=== PATIENT | female | born 2000 | race Caucasian/White ===

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

== ENCOUNTER 2019-06-25 06:05 | Day surgery (SDC) | payer BC ==
[2019-06-25] MEDS ORDERED: Lactated Ringers 1,000 ML IV SCH (06:30)
[2019-06-25] MEDS ORDERED: Ketamine HCl 50 MG/ML ONE (07:52)
[2019-06-25] MEDS ORDERED: Xylocaine-Mpf 2% 5 Ml Vial ONE (07:52)
[2019-06-25] MEDS ORDERED: DIPRIVAN 200 MG/20 ML IV ONE (07:52)
[2019-06-25 10:02] VITALS: BP 118/68; PULSE 87; O2SAT 99
--- NOTE | 2019-06-25 11:36 | OP ---
SURGERY DATE/TIME: 06/25/2019805 PREOPERATIVE DIAGNOSES: 1) Abdominal pain. 2) Alternating constipation with diarrhea. 3) Rectal bleeding. POSTOPERATIVE DIAGNOSIS: Mild gastritis. PROCEDURE: Esophagogastroduodenoscopy with cold forceps biopsy. SURGEON: Dr. Snow. ANESTHESIA: Medications were given by the anesthesia department. BRIEF HISTORY: The patient is a 18 year old white female who has been having problems with abdominal pain over the past five months. She has been on Bentyl and omeprazole without much relief. The patient reports she has been having problems with alternating constipation and diarrhea and now more recently has been having problems with rectal bleeding as well. The patient was felt the need to have endoscopic evaluation. She was appraised of the risks of the procedure including the risk of perforation, phlebitis, untoward reaction to medication, bleeding and missed lesions. The patient verbalized her understanding and desired to have the procedure performed. DESCRIPTION OF PROCEDURE: The patient was given the medications by the anesthesia department. She had continuous pulse oximetry, ECG monitoring, intermittent blood pressure monitoring and tidal CO2 monitoring during the examination. She was placed in the left lateral decubitus position. A bite block was placed and the flexible Olympus gastroscope was used to intubate the oropharynx. A view of the larynx was obtained and was normal. The scope was easily introduced in the esophagus which was normal throughout its length. The stomach was entered where normal gastric rugal folds were seen. The gastric lam was suctioned dry and the stomach was re-insufflated. The scope was passed along the greater curvature of the stomach to the antrum. The pylorus was encountered and intubated. The duodenum was inspected and found to be normal. The scope was withdrawn towards the stomach. Again, a retroflex view was obtained of the lesser curvature, fundus and cardia regions of the stomach and these appeared to be normal. The scope was then redirected towards the gastric antrum and biopsies were obtained to rule out the presence of Helicobacter pylori-type organisms. The scope was then removed from the patient who tolerated the procedure well and was sent back to outpatient recovery in good condition.
== END 2019-06-25 09:45 | disposition home or self-care (01) ==
LOC: SDC 06:05
PROVIDERS: ATTEND Family Medicine
DX: K29.70 Gastritis, unspecified, without bleeding (principal); R10.9 Unspecified abdominal pain; R19.7 Diarrhea, unspecified; K62.5 Hemorrhage of anus and rectum; K59.00 Constipation, unspecified
CPT/HCPCS: 84703; 88305; J2704

== ENCOUNTER 2020-06-21 13:26 | Emergency (ER) | payer BC ==
[2020-06-21] MEDS ORDERED: XYLOCAINE 1% HCL 20 ML MDV IJ ONE (13:27)
[2020-06-21] MEDS ORDERED: Sodium Chloride 0.9% 1000 ML 1,000 ML IV STA (14:47)
--- NOTE | 2020-06-21 14:47 | ERPHSYRPT ---
- History of Present Illness Time Seen by Provider: 06/21/20 14:44 Patient Subjective Stated Complaint: Pt states "I cannot keep anything down, my belly hurts and I have been having bright blood in my stool. My poop has been kind of sticky and tarry as well." Triage Nursing Assessment: Pt presented alert and oriented X 3, skin pwd. Pt ambulates with an upright steady gait, able to speak in clear full sentences. pt sent here from [facility]. Physician History: Pt states "I cannot keep anything down, my belly hurts and I have been having bright blood in my stool. My poop has been kind of sticky and tarry as well." Patient is having abdominal pain off and on for last few months but in last 3 to 4 days it has gotten worse. She called her primary care physician office and she was advised to go to the acute care and from acute care she was sent to the emergency room. She denies any fever chills nausea. She complaining of vomiting but in the emergency room she did not have any vomiting. Timing/Duration: week(s) Activities at Onset: none Quality: cramping Abdominal Pain Onset Location: RUQ, suprapubic Pain Radiation: no radiation Severity of Pain-Max: mild Severity of Pain-Current: mild Modifying Factors: Improves With: nothing Associated Symptoms: denies symptoms Previous symptoms: no prior history Allergies/Adverse Reactions: ciprofloxacin [From Cipro] Allergy (Severe, Verified 06/25/19 06:25) diff breathing sulfamethoxazole [From Bactrim] Allergy (Severe, Verified 06/25/19 06:25) diff breathing trimethoprim [From Bactrim] Allergy (Severe, Verified 06/25/19 06:25) diff breathing latex Allergy (Verified 06/25/19 06:25) Wheezing and hives wheat Adverse Reaction (Verified 06/21/20 13:54) sick Home Medications: Albuterol 17 gm IH Q6HPRN PRN 11/01/16 [History] Albuterol 2.5 mg/3 ml Neb [Proventil 2.5 mg/3 ml Neb] 2.5 mg IH Q6H PRN PRN 11/01/16 [History] Fluticasone/Vilanterol [Breo Ellipta 100-25 Mcg INH] 1 each IH DAILY 06/22/19 [History] Loratadine 10 mg [Claritin 10 mg] 10 mg PO DAILY 06/22/19 [History] Hx Tetanus, Diphtheria Vaccination/Date Given: No Hx Influenza Vaccination/Date Given: No Hx Pneumococcal Vaccination/Date Given: No Immunizations Up to Date: Yes Travel Risk - International Travel Have you traveled outside of the country in past 3 weeks: No - Coronavirus Screening Are you exhibiting any of the following symptoms?: No Close contact with a COVID-19 positive Pt in past 14-21 Days: No - Vaccine Status Have you recieved a Covid-19 vaccination: Yes [employer]: Trufa - Vaccination Dates Date of 2cond Vaccination (if applicable): 04/23/2020 - Review of Systems Constitutional: No Fever, No Chills Eyes: No Symptoms Ears, Nose, & Throat: No Symptoms Respiratory: No Cough, No Dyspnea Cardiac: No Chest Pain, No Edema, No Syncope Abdominal/Gastrointestinal: Hematochezia, No Abdominal Pain, No Nausea, No Vomiting, No Diarrhea Genitourinary Symptoms: No Dysuria Musculoskeletal: No Back Pain, No Neck Pain Skin: No Rash Neurological: No Dizziness, No Focal Weakness, No Sensory Changes Psychological: No Symptoms Endocrine: No Symptoms All Other Systems: Reviewed and Negative - Past Medical History Pertinent Past Medical History: Yes Neurological History: No Pertinent History ENT History: No Pertinent History Cardiac History: No Pertinent History Respiratory History: Asthma Endocrine Medical History: No Pertinent History Musculoskeletal History: No Pertinent History GI Medical History: No Pertinent History History: No Pertinent History Psycho-Social History: No Pertinent History Female Reproductive Disorders: No Pertinent History Other Medical History: abd pain n/v diarrhea constipations since Feb 2019 - Past Surgical History Past Surgical History: No Neuro Surgical History: No Pertinent History Cardiac: No Pertinent History Respiratory: No Pertinent History Gastrointestinal: No Pertinent History Genitourinary: No Pertinent History Musculoskeletal: No Pertinent History Female Surgical History: No Pertinent History Other Surgical History: pt states pt has never had surgery - Social History Smoking Status: Never smoker Exposure to second hand smoke: Yes Drug Use: none Patient Lives Alone: No - Female History Hx Now: (unknown) - Nursing Vital Signs Nursing Vital Signs: Initial Vital Signs Temperature 98.7 F 06/21/20 13:47 Pulse Rate 102 H 06/21/20 13:47 Respiratory Rate 06/21/20 13:47 Blood Pressure 119/87 06/21/20 13:47 O2 Sat by Pulse Oximetry 99 06/21/20 13:47 Pain Scale Pain Intensity 4 - Physical Exam General Appearance: no apparent distress, alert Eye Exam: PERRL/EOMI, eyes nml inspection Ears, Nose, Throat Exam: normal ENT inspection, pharynx normal, moist mucous membranes Neck Exam: normal inspection, non-tender, supple, full range of motion Respiratory Exam: normal breath sounds, lungs clear, No respiratory distress Cardiovascular Exam: regular rate/rhythm, normal heart sounds Gastrointestinal/Abdomen Exam: soft, No tenderness, No mass Back Exam: normal inspection, normal range of motion, No CVA tenderness, No vertebral tenderness Extremity Exam: normal inspection, normal range of motion, pelvis stable Neurologic Exam: alert, oriented x 3, cooperative, normal mood/affect, nml cerebellar function, sensation nml, No motor deficits Skin Exam: normal color, warm, dry SpO2: 99 - Course Nursing assessment & vital signs reviewed: Yes Ordered Tests: Active Orders 24 hr Category Date Time Status OBSTR/ACUTE ABDOMEN SERIES Stat Exams 06/21/20 14:38 Ordered AMYLASE Stat Lab 06/21/20 14:37 Completed CBC W DIFF Stat Lab 06/21/20 14:37 Completed CMP Stat Lab 06/21/20 14:37 Completed CULTURE,URINE Stat Lab 06/21/20 14:49 Ordered FECAL OCCULT BLOOD - SCREENING Stat Lab 06/21/20 14:48 Ordered HCG,QUALITATIVE URINE Stat Lab 06/21/20 14:49 Completed LIPASE Stat Lab 06/21/20 14:37 Completed UA W/RFX UR CULTURE Stat Lab 06/21/20 14:49 Completed Urine Triage Profile Stat Lab 06/21/20 14:49 Completed Medication Summary Generic Name Dose Route Start Last Admin Trade Name Freq PRN Reason Stop Dose Admin Ceftriaxone Sodium 1,000 mg 06/21/20 15:47 Rocephin 1000 Mg Inj IM 06/21/20 15:48 STAT ONE Discontinued Medications Generic Name Dose Route Start Last Admin Trade Name Freq PRN Reason Stop Dose Admin Sodium Chloride 1,000 mls @ 999 mls/hr 06/21/20 14:47 Sodium Chloride 0.9% 1000 Ml IV 06/21/20 15:47 .Q1H1M STA Lab/Rad Data: Laboratory Result Diagrams 06/21/20 14:37 06/21/20 14:37 Laboratory Results 06/21/20 06/21/20 06/21/20 Range/Units 14:49 14:49 14:49 WBC (4.0-10.5) K/mm3 RBC (4.1-5.4) M/mm3 Hgb (12.0-16.0) gm/dl Hct (35-47) % MCV (78-100) fl MCH (26-32) pg MCHC (32-36) g/dl RDW (11.5-14.0) % Plt Count (150-450) K/mm3 MPV (7.5-11.0) fl Gran % (36.0-66.0) % Eos # (Auto) (0-0.5) Absolute Lymphs (auto) (1.0-4.6) Absolute Monos (auto) (0.0-1.3) Lymphocytes % (24.0-44.0) % Monocytes % (0.0-12.0) % Eosinophils % (0.00-5.0) % Basophils % (0.0-0.4) % Absolute Granulocytes (1.4-6.9) Basophils # (0-0.4) Sodium (137-145) mmol/L Potassium (3.5-5.1) mmol/L Chloride (98-107) mmol/L Carbon Dioxide (22-30) mmol/L Anion Gap (5-15) MEQ/L BUN (7-17) mg/dL Creatinine (0.52-1.04) mg/dL Estimated GFR ML/MIN Glucose (74-106) mg/dL Calcium (8.4-10.2) mg/dL Total Bilirubin (0.2-1.3) mg/dL AST (14-36) U/L ALT (0-35) U/L Alkaline Phosphatase (38-126) U/L Serum Total Protein (6.3-8.2) g/dL Albumin (3.5-5.0) g/dL Amylase (30-110) U/L Lipase (23-300) U/L Urine Color YELLOW (YELLOW) Urine Appearance SLIGHTLY CLOUDY (CLEAR) Urine pH 8.0 (5-6) Ur Specific [place] 1.008 (1.005-1.025) Urine Protein NEGATIVE (Negative) Urine Ketones TRACE (NEGATIVE) Urine Blood NEGATIVE (0-5) Bayron/ul Urine Nitrite NEGATIVE (NEGATIVE) Urine Bilirubin NEGATIVE (NEGATIVE) Urine Urobilinogen NEGATIVE (0-1) mg/dL Ur Leukocyte Esterase LARGE (NEGATIVE) Urine WBC (Auto) 26-50 (0-5) /HPF Urine RBC (Auto) 0-2 (0-2) /HPF U Epithel Cells (Auto) FEW (FEW) /HPF Urine Bacteria (Auto) MODERATE (NEGATIVE) /HPF Urine Culture Reflexed ORDERED SEPARATELY (NO) Urine Glucose NEGATIVE (NEGATIVE) mg/dL Urine HCG, Qual NEGATIVE (Negative) Urine Opiates Level NEGATIVE (NEGATIVE) Ur Methadone NEGATIVE (NEGATIVE) Urine Barbiturates NEGATIVE (NEGATIVE) Ur Phencyclidine (PCP) NEGATIVE (NEGATIVE) Urine Amphetamine NEGATIVE (NEGATIVE) U Benzodiazepine Level NEGATIVE (NEGATIVE) Urine Cocaine NEGATIVE (NEGATIVE) Urine Marijuana (THC) NEGATIVE (NEGATIVE) 06/21/20 06/21/20 Range/Units 14:37 14:37 WBC 5.7 (4.0-10.5) K/mm3 RBC 4.60 (4.1-5.4) M/mm3 Hgb 13.9 (12.0-16.0) gm/dl Hct 41.9 (35-47) % MCV 91.1 (78-100) fl MCH 30.2 (26-32) pg MCHC 33.2 (32-36) g/dl RDW 12.6 (11.5-14.0) % Plt Count 317 (150-450) K/mm3 MPV 9.0 (7.5-11.0) fl Gran % 41.5 (36.0-66.0) % Eos # (Auto) 0.06 (0-0.5) Absolute Lymphs (auto) 2.67 (1.0-4.6) Absolute Monos (auto) 0.56 (0.0-1.3) Lymphocytes % 47.0 H (24.0-44.0) % Monocytes % 9.9 (0.0-12.0) % Eosinophils % 1.1 (0.00-5.0) % Basophils % 0.5 (0.0-0.4) % Absolute Granulocytes 2.36 (1.4-6.9) Basophils # 0.03 (0-0.4) Sodium 137 (137-145) mmol/L Potassium 3.6 (3.5-5.1) mmol/L Chloride 104 (98-107) mmol/L Carbon Dioxide 22 (22-30) mmol/L Anion Gap 14.5 (5-15) MEQ/L BUN 9 (7-17) mg/dL Creatinine 0.73 (0.52-1.04) mg/dL Estimated GFR > 60.0 ML/MIN Glucose 84 (74-106) mg/dL Calcium 9.4 (8.4-10.2) mg/dL Total Bilirubin 0.40 (0.2-1.3) mg/dL AST 25 (14-36) U/L ALT 19 (0-35) U/L Alkaline Phosphatase 99 (38-126) U/L Serum Total Protein 7.3 (6.3-8.2) g/dL Albumin 4.5 (3.5-5.0) g/dL Amylase 60 (30-110) U/L Lipase 69 (23-300) U/L Urine Color (YELLOW) Urine Appearance (CLEAR) Urine pH (5-6) Ur Specific [place] (1.005-1.025) Urine Protein (Negative) Urine Ketones (NEGATIVE) Urine Blood (0-5) Bayron/ul Urine Nitrite (NEGATIVE) Urine Bilirubin (NEGATIVE) Urine Urobilinogen (0-1) mg/dL Ur Leukocyte Esterase (NEGATIVE) Urine WBC (Auto) (0-5) /HPF Urine RBC (Auto) (0-2) /HPF U Epithel Cells (Auto) (FEW) /HPF Urine Bacteria (Auto) (NEGATIVE) /HPF Urine Culture Reflexed (NO) Urine Glucose (NEGATIVE) mg/dL Urine HCG, Qual (Negative) Urine Opiates Level (NEGATIVE) Ur Methadone (NEGATIVE) Urine Barbiturates (NEGATIVE) Ur Phencyclidine (PCP) (NEGATIVE) Urine Amphetamine (NEGATIVE) U Benzodiazepine Level (NEGATIVE) Urine Cocaine (NEGATIVE) Urine Marijuana (THC) (NEGATIVE) - Progress Progress: improved Counseled pt/family regarding: lab results, diagnosis, need for follow-up - Departure Departure Disposition: Home Clinical Impression: Urinary tract infection Qualifiers: Urinary tract infection type: acute pyelonephritis Qualified Code(s): N10 - Acute pyelonephritis Condition: Stable Critical Care Time: No Referrals: LISA MORRISON [Primary Care Provider] - Follow Up with PCP/3 days Instructions: Urinary Tract Infection, Adult (DC) Additional Instructions: Discharge/Care Plan BERNIE ONTIVEROS was seen on 06/21/20 in the Emergency Room. The patient was counseled regarding Diagnosis,Lab results, Imaging studies, need for follow up and when to return to the Emergency Room. Prescriptions given: Discharge Note I have spoken with the patient and/or caregivers. I have explained the patient's condition, diagnosis and treatment plan based on the information available to me at this time. I have answered the patient's and/or caregiver's questions and addressed any concerns. The patient and/or caregivers have as good understanding of the patient's diagnosis, condition and treatment plan as can be expected at this point. The vital signs have been stable. The patient's condition is stable and appropriate for discharge from the emergency department. The patient will pursue further outpatient evaluation with the primary care physician or other designated or consulting physician as outlined in the discharge instructions. The patient and/or caregivers are agreeable to this plan of care and follow-up instructions have been explained in detail. The patient and/or caregivers have received these instruction. The patient/and or caregivers are aware that any significant change in condition or worsening of symptoms should prompt an immediate return to this or the closest emergency department or call 911. BERNIE ONTIVEROS was seen on 06/21/20 n the Emergency Room. At that time you were treated for an emergent condition, during your visit Laboratory, Radiology and/or other procedures may have been ordered. It is very important that you follow-up with your Primary Care Physician LISA MORRISON within the next 24-48 hours to review your Emergency Room visit and the final results of testing that was ordered. Some test results such as Urine Cultures, Blood Cultures, and other cultures if ordered will not be finalized for 24-48 hours. If you do not have a Primary Care Provider please call the medical records department at [phone] to obtain a copy of your results or you may sign into our patient portal to obtain these results by visiting us @ [email or web address] and completing the following steps: 1. Click on the Patient Portal link 2. Click the Patient Self Enrollment Link to complete the enrollment form and entering your 3. Once the enrollment form is completed you will receive an email with a temporary ID and password at the email address you provided. 4. Next choose a user name and password. Your user name must be at least 4 characters long and your password must be at least 4 characters long. 5. Choose a security question from the list and provide your answer to the question. If you already have signed into the Health Portal you may access your Health Care Information 30/08 by the following steps: 1. Login to our website @ [email or web address] 2. Enter your original user name and password. FAQS The [facility] Health Portal is an online tool that contains your Lab Results, Radiology Reports, Visit History, Discharge Instructions and Health Summary Lab and Radiology Results will not be available for 72 hours on the portal. The Portal is a secure site, passwords are encryted and URLs are re-written so they cannot be copied and pasted. You and authorized family members are the only ones who can access your Portal. Also there is a timeout feature that protects your information if you leave the Portal page open. If you have technical difficulty please use the Contact Us link on the page this will allow you to submit any questions you have regarding the Portal or you may contact the Medical Record Department at [phone] ext [phone]. Prescriptions: Amoxicillin 500 mg Cap [Amoxil 500 mg] 500 mg PO TID #30 capsule
[2020-06-21 14:49] LABS: Absolute Neutrophil Ct (ANC) 2.36 (1.4-6.9); BASOPHIL % 0.5 % (0.0-0.4); Basophil (Absolute #) 0.03 (0-0.4); Eosinophil % 1.1 % (0.00-5.0); Eosinophil (Absolute #) 0.06 (0-0.5); Hematocrit 41.9 % (35-47); Hemoglobin 13.9 gm/dl (12.0-16.0); Lymphocyte (Absolute #) 2.67 (1.0-4.6); Mean Cell Volume 91.1 fl (78-100); Mean Corpuscular Hemoglobin 30.2 pg (26-32); Mean Corpuscular Hgb Concent. 33.2 g/dl (32-36); Monocyte (Absolute #) 0.56 (0.0-1.3); Monocytes % 9.9 % (0.0-12.0); Neutrophil % 41.5 % (36.0-66.0); Platelet Count 317 K/mm3 (150-450); Red Cell Distribution Width 12.6 % (11.5-14.0); White Blood Count 5.7 K/mm3 (4.0-10.5)
[2020-06-21 14:53] LABS: Appearance SLIGHTLY CLOUDY (CLEAR); Bacteria MODERATE /HPF (NEGATIVE); Bilirubin NEGATIVE (NEGATIVE); Blood NEGATIVE Ery/ul (0-5); Epithelial Cells FEW /HPF (FEW); Glucose NEGATIVE (NEGATIVE); Ketones TRACE (NEGATIVE); Leukocyte Esterase LARGE (NEGATIVE); Nitrite NEGATIVE (NEGATIVE); Protein,Urine Dip NEGATIVE (Negative); RBC 0-2 /HPF (0-2); Specific Gravity 1.008 (1.005-1.025); Urobilinogen NEGATIVE mg/dL (0-1); WBC 26-50 /HPF (0-5)
[2020-06-21 15:02] LABS: ALBUMIN 4.5 g/dL (3.5-5.0); ALKALINE PHOSPHATASE 99 U/L (38-126); AMYLASE 60 U/L (30-110); ANION GAP 14.5 MEQ/L (5-15); BLOOD UREA NITROGEN 9 mg/dL (7-17); CHLORIDE 104 mmol/L (98-107); Calcium 9.4 mg/dL (8.4-10.2); Carbon Dioxide 22 mmol/L (22-30); Creatinine 1 0.73 mg/dL (0.52-1.04); EST GLOMERULAR FILTRATION RATE > 60.0 ML/MIN; Glucose 84 mg/dL (74-106); LIPASE 69 U/L (23-300); Potassium 3.6 mmol/L (3.5-5.1); SGOT/AST 25 U/L (14-36); SGPT/ALT 19 U/L (0-35); SODIUM 137 mmol/L (137-145); Total Protein 7.3 g/dL (6.3-8.2)
[2020-06-21 15:05] LABS: Amphetamine,Urine NEGATIVE (NEGATIVE); Barbiturate,Urine NEGATIVE (NEGATIVE); Benzodiazepine,Urine NEGATIVE (NEGATIVE); Cocaine,Urine NEGATIVE (NEGATIVE); Methadone,Urine NEGATIVE (NEGATIVE); Opiate,Urine NEGATIVE (NEGATIVE); PCP,Urine NEGATIVE (NEGATIVE); THC,Urine NEGATIVE (NEGATIVE)
[2020-06-21] MEDS ORDERED: Rocephin 1000 MG INJ IM ONE (15:47)
[2020-06-21] MEDS ORDERED: Sodium Chloride 0.9% 1000 ML 1,000 ML ONE (15:56)
[2020-06-21] MEDS ORDERED: Rocephin 1000 MG INJ ONE ×2 (15:56→16:09)
[2020-06-21 17:37] VITALS: BP 106/66; PULSE 76; O2SAT 98
--- NOTE | 2020-06-21 19:42 | XRAY ---
Indication: Abdomen/rectal pain. Blood in stool. Comparison: [facility] September 07, 2016. 2 view abdomen nonacute and nonobstructed with little fecal debris in right hemicolon. Remaining solid organs and osseous structures unremarkable. Single PA chest demonstrates normal heart, lungs, bony thorax.
== END 2020-06-21 17:30 | disposition home or self-care (01) ==
LOC: ED 13:26
DX: N10 Acute pyelonephritis (principal)
CPT/HCPCS: 36000; 36415; 74022; 80053; 80307; 81001; 82150; 83690; 84703; 85025; 87086; 96360; 96372; 99284; J0696

== ENCOUNTER 2021-05-28 11:43 | Emergency (ER) | payer BC ==
[2021-05-28] MEDS ORDERED: Sodium Chloride 0.9% 1000 ML 1,000 ML IV STA (12:00)
[2021-05-28] MEDS ORDERED: Sodium Chloride 0.9% 1000 ML 1,000 ML ONE (12:03)
[2021-05-28] MEDS ORDERED: Zofran 4 MG/2 ML VIAL IV ONE (12:14)
[2021-05-28] MEDS ORDERED: Zofran 4 MG/2 ML VIAL ONE (12:17)
[2021-05-28 12:42] LABS: Absolute Neutrophil Ct (ANC) 4.64 (1.4-6.9); Basophil (Absolute #) 0.02 (0-0.4); Eosinophil % 0.8 % (0.00-5.0); Eosinophil (Absolute #) 0.06 (0-0.5); Hematocrit 38.8 % (35-47); Hemoglobin 12.1 gm/dl (12.0-16.0); Lymphocyte (Absolute #) 2.27 (1.0-4.6); Lymphocytes % 29.5 % (24.0-44.0); Mean Cell Volume 91.3 fl (78-100); Mean Corpuscular Hemoglobin 28.5 pg (26-32); Mean Corpuscular Hgb Concent. 31.2 g/dl (32-36); Mean Platelet Volume 9.2 fl (7.5-11.0); Monocytes % 9.1 % (0.0-12.0); Neutrophil % 60.3 % (36.0-66.0); Platelet Count 302 K/mm3 (150-450); Red Blood Count 4.25 M/mm3 (4.1-5.4); Red Cell Distribution Width 14.3 % (11.5-14.0); White Blood Count 7.7 K/mm3 (4.0-10.5)
[2021-05-28 12:49] LABS: ALBUMIN 3.7 g/dL (3.5-5.0); ALKALINE PHOSPHATASE 81 U/L (38-126); ANION GAP 11.4 MEQ/L (5-15); BLOOD UREA NITROGEN 11 mg/dL (7-17); CHLORIDE 106 mmol/L (98-107); Calcium 8.4 mg/dL (8.4-10.2); Carbon Dioxide 23 mmol/L (22-30); Creatinine 1 0.54 mg/dL (0.52-1.04); EST GLOMERULAR FILTRATION RATE > 60.0 ML/MIN; Glucose 79 mg/dL (74-106); LIPASE 61 U/L (23-300); Potassium 4.2 mmol/L (3.5-5.1); SGOT/AST 24 U/L (14-36); SGPT/ALT 17 U/L (0-35); SODIUM 136 mmol/L (137-145); Total Protein 6.4 g/dL (6.3-8.2)
[2021-05-28 13:01] LABS: Appearance SLIGHTLY CLOUDY (CLEAR); Bilirubin NEGATIVE (NEGATIVE); Dipstick done @ ? MAIN LAB; Glucose NEGATIVE (NEGATIVE); Ketones NEGATIVE (NEGATIVE); Nitrite NEGATIVE (NEGATIVE); Protein,Urine Dip NEGATIVE (Negative); RBC MODERATE Ery/ul (0-5); Specific Gravity 1.015 (1.005-1.025); Urobilinogen 0.2 mg/dL (0-1)
[2021-05-28 13:08] LABS: Bacteria RARE /HPF (NEGATIVE); Epithelial Cells MODERATE /HPF (FEW); Mucus SLIGHT /HPF (NEGATIVE); WBC >100 /HPF (0-5)
[2021-05-28 13:12] LABS: Urine Cultured Indicated? YES
[2021-05-28] MEDS ORDERED: KEFLEX 500 MG PO ONE (13:12)
[2021-05-28] MEDS ORDERED: KEFLEX 500 MG ONE (13:13)
[2021-05-28 13:18] LABS: Amphetamine,Urine NEGATIVE (NEGATIVE); Barbiturate,Urine NEGATIVE (NEGATIVE); Benzodiazepine,Urine NEGATIVE (NEGATIVE); Cocaine,Urine NEGATIVE (NEGATIVE); Methadone,Urine NEGATIVE (NEGATIVE); Opiate,Urine NEGATIVE (NEGATIVE); PCP,Urine NEGATIVE (NEGATIVE); THC,Urine NEGATIVE (NEGATIVE)
--- NOTE | 2021-05-28 14:25 | ERPHSYRPT ---
- History of Present Illness Time Seen by Provider: 05/28/21 12:10 Historian: patient Exam Limitations: no limitations Patient Subjective Stated Complaint: pt states "I have recurring stomach issues. I was over at [facility] and they sent me over here." Triage Nursing Assessment: pt ambulated into the er; pt was on cell phone and walked appropriately; c/o vomiting; pt states 4/10 pain to LLQ; pt states "I have stomach issues and see 2 GI doctors."; pt states that she has been vomiting since Tuesday; mucus membranes are pink and moist; pt c/o dehydration; pt c/o constipation; hyperactive bowel sounds in all quads; abd is round, soft; te nderness present to LLQ; vitals wnl Physician History: 20-year-old female with history of chronic abdominal pain doing Follow-up with GI is sent to ER from primary care for dehydration as patient is having left- sided abdominal pain and multiple episodes of nonprojectile, nonbilious vomiting without emesis. She feels weak fatigued tired and dehydrated. No fever or chills reported. Timing/Duration: week(s), intermittent, improved Quality: cramping Abdominal Pain Onset Location: generalized abdomen Pain Radiation: no radiation Severity of Pain-Max: moderate Severity of Pain-Current: mild Modifying Factors: Worsens With: movement, palpation, vomiting Associated Symptoms: nausea, vomiting Previous symptoms: same symptoms as today Allergies/Adverse Reactions: ciprofloxacin [From Cipro] Allergy (Severe, Verified 05/28/21 11:50) diff breathing sulfamethoxazole [From Bactrim] Allergy (Severe, Verified 05/28/21 11:50) diff breathing trimethoprim [From Bactrim] Allergy (Severe, Verified 05/28/21 11:50) diff breathing latex Allergy (Verified 05/28/21 11:50) Wheezing and hives wheat Adverse Reaction (Verified 05/28/21 11:50) sick Home Medications: Albuterol 17 gm IH Q6HPRN PRN 11/01/16 [History] Albuterol 2.5 mg/3 ml Neb [Proventil 2.5 mg/3 ml Neb] 2.5 mg IH Q6H PRN PA N 11/01/16 [History] Fluticasone/Vilanterol [Breo Ellipta 100-25 Mcg INH] 1 each IH DAILY 06/22/19 [ History] Loratadine 10 mg [Claritin 10 mg] 10 mg PO DAILY 06/22/19 [History] Hx Tetanus, Diphtheria Vaccination/Date Given: Yes Hx Influenza Vaccination/Date Given: No Hx Pneumococcal Vaccination/Date Given: No Immunizations Up to Date: Yes Travel Risk - International Travel Have you traveled outside of the country in past 3 weeks: No - Coronavirus Screening Are you exhibiting any of the following symptoms?: Yes Symptoms: Vomiting/Diarrhea Close contact with a COVID-19 positive Pt in past 14-21 Days: No - Vaccine Status Have you recieved a Covid-19 vaccination: Yes [employer]: [employer] - Vaccination Dates Date of 2cond Vaccination (if applicable): 04/23/2020 - Review of Systems Constitutional: Fatigue, Weakness Eyes: No Symptoms Ears, Nose, & Throat: No Symptoms Respiratory: No Symptoms Cardiac: No Symptoms Abdominal/Gastrointestinal: Abdominal Pain, Nausea, Vomiting Genitourinary Symptoms: No Symptoms Musculoskeletal: No Symptoms Skin: No Symptoms Neurological: No Symptoms Psychological: No Symptoms Endocrine: No Symptoms Hematologic/Lymphatic: No Symptoms Immunological/Allergic: No Symptoms - Past Medical History Pertinent Past Medical History: Yes Neurological History: No Pertinent History ENT History: No Pertinent History Cardiac History: No Pertinent History Respiratory History: Asthma Endocrine Medical History: No Pertinent History Musculoskeletal History: No Pertinent History GI Medical History: No Pertinent History History: No Pertinent History Psycho-Social History: No Pertinent History Female Reproductive Disorders: No Pertinent History Other Medical History: abd pain n/v diarrhea constipations since Feb 2019 - Past Surgical History Past Surgical History: No Neuro Surgical History: No Pertinent History Cardiac: No Pertinent History Respiratory: No Pertinent History Gastrointestinal: No Pertinent History Genitourinary: No Pertinent History Musculoskeletal: No Pertinent History Female Surgical History: No Pertinent History Other Surgical History: pt states pt has never had surgery - Social History Smoking Status: Never smoker Exposure to second hand smoke: Yes Drug Use: none Patient Lives Alone: Yes - Female History Hx Now: Yes (unsure) - Nursing Vital Signs Nursing Vital Signs: Initial Vital Signs Temperature 97.7 F 05/28/21 11:51 Pulse Rate 88 05/28/21 11:51 Respiratory Rate 14 05/28/21 11:51 Blood Pressure 115/72 05/28/21 11:51 O2 Sat by Pulse Oximetry 100 05/28/21 11:51 Pain Scale Pain Intensity 2 - Physical Exam General Appearance: no apparent distress, alert Eye Exam: PERRL/EOMI, eyes nml inspection Ears, Nose, Throat Exam: normal ENT inspection, pharynx normal Neck Exam: normal inspection, non-tender, supple, full range of motion Respiratory Exam: normal breath sounds, lungs clear Cardiovascular Exam: regular rate/rhythm, normal heart sounds Gastrointestinal/Abdomen Exam: soft, normal bowel sounds, tenderness (mild LLQ), No guarding Back Exam: normal inspection, normal range of motion, No CVA tenderness Extremity Exam: normal inspection, normal range of motion Neurologic Exam: alert, oriented x 3, cooperative Skin Exam: normal color SpO2 Interpretation: normal SpO2: 98 O2 Delivery: Room Air Ordered Tests: Active Orders 24 hr Category Date Time Status IV Insertion STAT Care 05/28/21 12:14 Completed CBC W DIFF Stat Lab 05/28/21 12:30 Completed CMP Stat Lab 05/28/21 12:30 Completed CULTURE,URINE Stat Lab 05/28/21 12:01 Received HCG,QUALITATIVE URINE Stat Lab 05/28/21 12:20 Completed LIPASE Stat Lab 05/28/21 12:30 Completed Urine Triage Profile Stat Lab 05/28/21 12:24 Completed Medication Summary Discontinued Medications Generic Name Dose Route Start Last Admin Trade Name Martha PRN Reason Stop Dose Admin Cephalexin HCl 500 mg 05/28/21 13:12 05/28/21 13:13 Cephalexin Mh500 Mg Capsule PO 05/28/21 13:13 500 mg STAT ONE Administration Cephalexin HCl Confirm 05/28/21 13:13 Cephalexin Mh500 Mg Capsule Administered 05/28/21 13:14 Dose 500 mg .ROUTE .STK-MED ONE Sodium Chloride 1,000 mls @ 999 mls/hr 05/28/21 12:00 05/28/21 13:08 Sodium Chloride 0.9% 1000 Ml IV 05/28/21 13:00 Infused .Q1H1M STA Infusion Sodium Chloride Confirm 05/28/21 12:03 Sodium Chloride 0.9% 1000 Ml Administered 05/28/21 12:04 Dose 1,000 mls @ ud .ROUTE .STK-MED ONE Ondansetron HCl 4 mg 05/28/21 12:14 05/28/21 12:18 Ondansetron Hcl 4 Mg/2 Ml Vial IV 05/28/21 12:15 4 mg STAT ONE Administration Ondansetron HCl Confirm 05/28/21 12:17 Ondansetron Hcl 4 Mg/2 Ml Vial Administered 05/28/21 12:18 Dose 4 mg .ROUTE .STK-MED ONE Lab/Rad Data: Laboratory Result Diagrams 05/28/21 12:30 05/28/21 12:30 Laboratory Results 05/28/21 05/28/21 05/28/21 Range/Units 12:30 12:30 12:24 WBC 7.7 (4.0-10.5) K/mm3 RBC 4.25 (4.1-5.4) M/mm3 Hgb 12.1 (12.0-16.0) gm/dl Hct 38.8 (35-47) % MCV 91.3 (78-100) fl MCH 28.5 (26-32) pg MCHC 31.2 L (32-36) g/dl RDW 14.3 H (11.5-14.0) % Plt Count 302 (150-450) K/mm3 MPV 9.2 (7.5-11.0) fl Gran % 60.3 (36.0-66.0) % Eos # (Auto) 0.06 (0-0.5) Absolute Lymphs (auto) 2.27 (1.0-4.6) Absolute Monos (auto) 0.70 (0.0-1.3) Lymphocytes % 29.5 (24.0-44.0) % Monocytes % 9.1 (0.0-12.0) % Eosinophils % 0.8 (0.00-5.0) % Basophils % 0.3 (0.0-0.4) % Absolute Granulocytes 4.64 (1.4-6.9) Basophils # 0.02 (0-0.4) Sodium 136 L (137-145) mmol/L Potassium 4.2 (3.5-5.1) mmol/L Chloride 106 (98-107) mmol/L Carbon Dioxide 23 (22-30) mmol/L Anion Gap 11.4 (5-15) MEQ/L BUN 11 (7-17) mg/dL Creatinine 0.54 (0.52-1.04) mg/dL Estimated GFR > 60.0 ML/MIN Glucose 79 (74-106) mg/dL Calcium 8.4 (8.4-10.2) mg/dL Total Bilirubin 0.40 (0.2-1.3) mg/dL AST 24 (14-36) U/L ALT 17 (0-35) U/L Alkaline Phosphatase 81 (38-126) U/L Serum Total Protein 6.4 (6.3-8.2) g/dL Albumin 3.7 (3.5-5.0) g/dL Lipase 61 (23-300) U/L Urinalys Dipstick Clnc Urine Color Urine Appearance Urine pH Ur Specific [place] Urine Protein POC Urine Protein Conf (Negative) Urine Ketones Urine Blood Urine Nitrite Urine Bilirubin Urine Urobilinogen Ur Leukocyte Esterase Urine Leukocytes (NEGATIVE) Urine WBC (Auto) (0-5) /HPF Urine RBC (Auto) (0-2) /HPF U Epithel Cells (Auto) (FEW) /HPF Urine Bacteria (Auto) (NEGATIVE) /HPF Urine RBC (0-5) [place]/ul U Non-Squamous Epi Cells Urine Mucus (Auto) (NEGATIVE) /HPF Ur Culture Indicated? Urine Culture Reflexed Urine Glucose (NEGATIVE) mg/dL Urine HCG, Qual (Negative) Urine Opiates Level NEGATIVE (NEGATIVE) Ur Methadone NEGATIVE (NEGATIVE) Urine Barbiturates NEGATIVE (NEGATIVE) Ur Phencyclidine (PCP) NEGATIVE (NEGATIVE) Urine Amphetamine NEGATIVE (NEGATIVE) U Benzodiazepine Level NEGATIVE (NEGATIVE) Urine Cocaine NEGATIVE (NEGATIVE) Urine Marijuana (THC) NEGATIVE (NEGATIVE) 05/28/21 05/28/21 Range/Units 12:20 12:01 WBC (4.0-10.5) K/mm3 RBC (4.1-5.4) M/mm3 Hgb (12.0-16.0) gm/dl Hct (35-47) % MCV (78-100) fl MCH (26-32) pg MCHC (32-36) g/dl RDW (11.5-14.0) % Plt Count (150-450) K/mm3 MPV (7.5-11.0) fl Gran % (36.0-66.0) % Eos # (Auto) (0-0.5) Absolute Lymphs (auto) (1.0-4.6) Absolute Monos (auto) (0.0-1.3) Lymphocytes % (24.0-44.0) % Monocytes % (0.0-12.0) % Eosinophils % (0.00-5.0) % Basophils % (0.0-0.4) % Absolute Granulocytes (1.4-6.9) Basophils # (0-0.4) Sodium (137-145) mmol/L Potassium (3.5-5.1) mmol/L Chloride (98-107) mmol/L Carbon Dioxide (22-30) mmol/L Anion Gap (5-15) MEQ/L BUN (7-17) mg/dL Creatinine (0.52-1.04) mg/dL Estimated GFR ML/MIN Glucose (74-106) mg/dL Calcium (8.4-10.2) mg/dL Total Bilirubin (0.2-1.3) mg/dL AST (14-36) U/L ALT (0-35) U/L Alkaline Phosphatase (38-126) U/L Serum Total Protein (6.3-8.2) g/dL Albumin (3.5-5.0) g/dL Lipase (23-300) U/L Urinalys Dipstick Clnc MAIN LAB Urine Color Cancelled Urine Appearance Cancelled Urine pH Cancelled Ur Specific [place] Cancelled Urine Protein Cancelled POC Urine Protein Conf NEGATIVE (Negative) Urine Ketones Cancelled Urine Blood Cancelled Urine Nitrite Cancelled Urine Bilirubin Cancelled Urine Urobilinogen Cancelled Ur Leukocyte Esterase Cancelled Urine Leukocytes LARGE (NEGATIVE) Urine WBC (Auto) >100 (0-5) /HPF Urine RBC (Auto) 16-25 (0-2) /HPF U Epithel Cells (Auto) MODERATE (FEW) /HPF Urine Bacteria (Auto) RARE (NEGATIVE) /HPF Urine RBC MODERATE (0-5) [place]/ul U Non-Squamous Epi Cells Cancelled Urine Mucus (Auto) SLIGHT (NEGATIVE) /HPF Ur Culture Indicated? YES Urine Culture Reflexed Cancelled Urine Glucose NEGATIVE (NEGATIVE) mg/dL Urine HCG, Qual NEGATIVE (Negative) Urine Opiates Level (NEGATIVE) Ur Methadone (NEGATIVE) Urine Barbiturates (NEGATIVE) Ur Phencyclidine (PCP) (NEGATIVE) Urine Amphetamine (NEGATIVE) U Benzodiazepine Level (NEGATIVE) Urine Cocaine (NEGATIVE) Urine Marijuana (THC) (NEGATIVE) - Progress Progress: improved Progress Note: 05/28/21 14:21 20-year-old is evaluated for abdominal pain with vomiting. She has a chronic abdominal pain and its not any worse than usual and is similar to previous epi sodes. She is given fluids, Work-up pretty much unremarkable except UTI and started on keflex. Recommended outpatient follow-up. Discussed signs symptoms of worsening needing return to ER which she is understanding. Stable for discharge. Counseled pt/family regarding: lab results, diagnosis, need for follow-up - Departure Departure Disposition: Home Clinical Impression: Acute UTI, Chronic abdominal pain, Nausea & vomiting Condition: Stable Critical Care Time: No Referrals: LISA MORRISON [Primary Care Provider] - Follow Up with PCP/3 days Instructions: Nausea and Vomiting, Adult (DC) Additional Instructions: drink plenty of fluids, take zofran/Phenergan as needed for nausea /vomiting. follow up with PCP for re evaluationa nd keep appointment with GI. Prescriptions: Promethazine HCl 25 mg [Phenergan 25 mg] 25 mg PO Q8H PRN PRN #10 tablet PRN Reason: Vomiting Cephalexin Mh 500 mg [Keflex 500 mg] 500 mg PO TID #21 cap
[2021-05-28 14:27] VITALS: BP 104/64; PULSE 73
[2021-05-28 14:32] VITALS: O2SAT 98
== END 2021-05-28 14:34 | disposition home or self-care (01) ==
LOC: ED 11:43
DX: N39.0 Urinary tract infection, site not specified (principal); R11.2 Nausea with vomiting, unspecified; G89.29 Other chronic pain; R10.84 Generalized abdominal pain; E86.0 Dehydration; R53.1 Weakness; R53.83 Other fatigue; Z79.899 Other long term (current) drug therapy
CPT/HCPCS: 36000; 36415; 80053; 80307; 81015; 83690; 84703; 85025; 87086; 96360; 96374; 99284; J2405; A9270-GY

== ENCOUNTER 2022-12-16 10:30 | Emergency (ER) | payer BC, OTHER ==
--- NOTE | 2022-12-16 10:35 | ERPHSYRPT ---
- History of Present Illness Time Seen by Provider: 12/16/22 10:35 Source: patient Exam Limitations: no limitations Physician History: This is a 22-year-old white female patient of Dr. Snow who has noticed some blood when she used the restroom yesterday. Her last menstrual period was 10/17/2022. She took a test 2 weeks ago and it came back positive and then had the bleeding yesterday and is concerned. She has very low back pain bilaterally. The lower back pain began on the left side primarily on 12/11/2022. Today, the right side has more pain in the left. Because of the pain and the blood clot she noticed while using the bathroom yesterday she came in for evaluation. Patient has an appointment to be evaluated by her primary care provider on 01/03/2023. Patient has a history of asthma and seasonal allergies. She denies chest pain. She denies shortness of breath. She denies abdominal pain. She has had no vomiting or diarrhea. Patient is on day 3 of a prescription of Vantin to treat a urinary tract infection. Patient states that she delivered a child approximately 4 months ago. She is not breast-feeding. But she has noticed some nipple discharge bilaterally. Timing/Duration: yesterday, worse Activites at Onset: none Quality: sharpness Pain Radiation: none Severity of Pain-Max: mild Severity of Pain-Current: mild Modifying Factors: Improves With: nothing Associated Symptoms: , lower back pain, No abdominal pain, No urinary frequency, No loss of bladder control Allergies/Adverse Reactions: ciprofloxacin [From Cipro] Allergy (Severe, Verified 12/16/22 11:20) diff breathing sulfamethoxazole [From Bactrim] Allergy (Severe, Verified 12/16/22 11:20) diff breathing trimethoprim [From Bactrim] Allergy (Severe, Verified 12/16/22 11:20) diff breathing latex Allergy (Verified 12/16/22 11:20) Wheezing and hives peanut Allergy (Verified 12/16/22 11:20) wheat Adverse Reaction (Verified 12/16/22 11:20) sick Home Medications: Cefpodoxime Proxetil 200 mg [Vantin 200 mg] 1 tab PO BID 12/16/22 [History] Hx Tetanus, Diphtheria Vaccination/Date Given: Yes Hx Influenza Vaccination/Date Given: No Hx Pneumococcal Vaccination/Date Given: No Travel Risk - International Travel Have you traveled outside of the country in past 3 weeks: No - Coronavirus Screening Are you exhibiting any of the following symptoms?: No Close contact with a COVID-19 positive Pt in past 14-21 Days: No - Vaccine Status Have you recieved a Covid-19 vaccination: Yes Health Plan Advisor: Pfizer - Vaccination Dates Date of 2cond Vaccination (if applicable): 04/23/2020 - Review of Systems Constitutional: No Symptoms Eyes: No Symptoms Ears, Nose, & Throat: No Symptoms Respiratory: No Symptoms Cardiac: No Symptoms Abdominal/Gastrointestinal: No Symptoms Genitourinary Symptoms: Vaginal Bleeding Musculoskeletal: Back Pain, No Fall, No Injury Skin: No Symptoms Neurological: No Symptoms Psychological: No Symptoms Endocrine: No Symptoms Hematologic/Lymphatic: No Symptoms Immunological/Allergic: No Symptoms All Other Systems: Reviewed and Negative - Past Medical History Pertinent Past Medical History: Yes Neurological History: No Pertinent History ENT History: No Pertinent History Cardiac History: No Pertinent History Respiratory History: Asthma Endocrine Medical History: No Pertinent History Musculoskeletal History: No Pertinent History GI Medical History: No Pertinent History History: No Pertinent History Psycho-Social History: No Pertinent History Female Reproductive Disorders: No Pertinent History Other Medical History: abd pain n/v diarrhea constipations since Feb 2019 - Past Surgical History Past Surgical History: No Neuro Surgical History: No Pertinent History Cardiac: No Pertinent History Respiratory: No Pertinent History Gastrointestinal: No Pertinent History Genitourinary: No Pertinent History Musculoskeletal: No Pertinent History Female Surgical History: No Pertinent History Other Surgical History: pt states pt has never had surgery - Social History Smoking Status: Never smoker Exposure to second hand smoke: Yes Drug Use: none Patient Lives Alone: Yes - Nursing Vital Signs Nursing Vital Signs: Initial Vital Signs Temperature 97.9 F 12/16/22 10:31 Pulse Rate 91 H 12/16/22 10:31 Respiratory Rate 19 12/16/22 10:31 Blood Pressure 131/92 12/16/22 10:31 O2 Sat by Pulse Oximetry 99 12/16/22 10:31 Pain Scale Pain Intensity 8 - Physical Exam General Appearance: no apparent distress, alert, anxiety, obese Eye Exam: PERRL/EOMI, eyes nml inspection Ears, Nose, Throat Exam: normal ENT inspection, moist mucous membranes Neck Exam: normal inspection, non-tender, supple, full range of motion Respiratory Exam: normal breath sounds, lungs clear, airway intact, No chest tenderness, No respiratory distress Cardiovascular Exam: regular rate/rhythm, normal heart sounds, normal peripheral pulses Gastrointestinal/Abdomen Exam: soft, normal bowel sounds, No tenderness Pelvic Exam: not done Rectal Exam: not done Back Exam: normal inspection, normal range of motion, No CVA tenderness, No vertebral tenderness Extremity Exam: normal inspection, normal range of motion, pelvis stable Neurologic Exam: alert, oriented x 3, cooperative, commissioned [employer] II-XII nml as tested, normal mood/affect, nml cerebellar function, nml station & gait, sensation nml Skin Exam: normal color, warm, dry Lymphatic Exam: No adenopathy SpO2 Interpretation: normal O2 Delivery: Room Air - Course Nursing assessment & vital signs reviewed: Yes Ordered Tests: Active Orders 24 hr Category Date Time Status OB <14 WKS 1ST GESTATION [US] Stat Exams 12/16/22 11:26 Completed AMYLASE Stat Lab 12/16/22 12:40 Completed CBC W DIFF Stat Lab 12/16/22 12:40 Completed CMP Stat Lab 12/16/22 12:40 Completed CULTURE,URINE Stat Lab 12/16/22 11:29 Received HCG QUALITATIVE, URINE Stat Lab 12/16/22 Completed HCG, Quantitative (Inhouse) Stat Lab 12/16/22 12:40 Completed LIPASE Stat Lab 12/16/22 12:40 Completed UA W/RFX UR CULTURE Stat Lab 12/16/22 11:29 Completed Medication Summary Discontinued Medications Generic Name Dose Route Start Last Admin Trade Name Martha PRN Reason Stop Dose Admin Hydrocodone Bitart/Acetaminophen 1 tab 12/16/22 12:35 12/16/22 13:19 Hydrocodone/Apap 5/325 1 Tab Tablet PO 12/16/22 12:36 1 tab STAT ONE Administration Hydrocodone Bitart/Acetaminophen Confirm 12/16/22 13:15 Hydrocodone/Apap 5/325 1 Tab Tablet Administered 12/16/22 13:16 Dose 1 tab .ROUTE .STK-MED ONE Ceftriaxone Sodium 1,000 mg 12/16/22 12:35 12/16/22 13:18 Ceftriaxone Sodium 250 Mg Vial IM 12/16/22 12:36 Not Given STAT ONE Ceftriaxone Sodium Confirm 12/16/22 13:15 Ceftriaxone Sodium 1000 Mg Inj Vial Administered 12/16/22 13:16 Dose 1,000 mg .ROUTE .STK-MED ONE Ceftriaxone Sodium 1,000 mg 12/16/22 13:18 12/16/22 13:19 Ceftriaxone Sodium 1000 Mg Inj Vial IM 12/16/22 13:19 1,000 mg STAT ONE Administration Ceftriaxone Sodium/Dextrose 1 g in 50 mls @ 100 mls/hr 12/16/22 12:32 12/16/22 12:35 Rocephin 1 Gm-D5w 50 Ml Bag IV 12/16/22 13:01 Not Given STAT STA Ketorolac Tromethamine 60 mg 12/16/22 12:34 12/16/22 13:17 Ketorolac Tromethamine 30 Mg/Ml Inj IM 12/16/22 12:35 60 mg STAT ONE Administration Ketorolac Tromethamine Confirm 12/16/22 13:15 Ketorolac Tromethamine 30 Mg/Ml Inj Administered 12/16/22 13:16 Dose 60 mg .ROUTE .STK-MED ONE Lidocaine HCl Confirm 12/16/22 13:15 Lidocaine Hcl 1% 20 Ml Mdv 20 Ml Ml Administered 12/16/22 13:16 Dose 3 ml .ROUTE .STK-MED ONE Lab/Rad Data: Laboratory Result Diagrams 12/16/22 12:40 12/16/22 12:40 Laboratory Results 12/16/22 12/16/22 12/16/22 Range/Units Unknown 12:40 12:40 WBC 5.9 (4.0-10.5) x10^3/uL RBC 4.46 (4.1-5.4) x10^6/uL Hgb 13.5 (12.0-16.0) g/dL Hct 43.5 (35-47) % MCV 97.5 (78-100) fL MCH 30.3 (26-32) pg MCHC 31.0 L (32-36) g/dL RDW 13.1 (11.5-14.0) % Plt Count 188 (150-450) x10^3/uL MPV 10.0 (7.5-11.0) fL Gran % 48.3 (36.0-66.0) % Immature Gran % (Auto) 0.2 (0.00-0.4) % Nucleat RBC Rel Count 0.0 (0.00-0.1) % Eos # (Auto) 0.03 (0-0.5) x10^3/uL Immature Gran # (Auto) 0.01 (0.00-0.03) x10^3u/L Absolute Lymphs (auto) 2.45 (1.0-4.6) x10^3/uL Absolute Monos (auto) 0.53 (0.0-1.3) x10^3/uL Absolute Nucleated RBC 0.00 (0.00-0.01) x10^3u/L Lymphocytes % 41.5 (24.0-44.0) % Monocytes % 9.0 (0.0-12.0) % Eosinophils % 0.5 (0.00-5.0) % Basophils % 0.5 (0.0-0.4) % Absolute Granulocytes 2.86 (1.4-6.9) x10^3/uL Basophils # 0.03 (0-0.4) x10^3/uL Sodium 138 (137-145) mmol/L Potassium 4.2 (3.5-5.1) mmol/L Chloride 106 (98-107) mmol/L Carbon Dioxide 20 L (22-30) mmol/L Anion Gap 15.4 H (5-15) MEQ/L BUN 10 (7-17) mg/dL Creatinine 0.76 (0.52-1.04) mg/dL Estimated GFR 112.9 ML/MIN Glucose 82 (74-106) mg/dL Calcium 9.3 (8.4-10.2) mg/dL Total Bilirubin 0.40 (0.2-1.3) mg/dL AST 20 (14-36) U/L ALT 25 (0-35) U/L Alkaline Phosphatase 84 (38-126) U/L Serum Total Protein 6.7 (6.3-8.2) g/dL Albumin 4.1 (3.5-5.0) g/dL Amylase 40 (30-110) U/L Lipase 60 (23-300) U/L Beta HCG, Quant < 2.39 mIU/ml Urine Color (Yellow) Urine Appearance (Clear) Urine pH (4.6-8.0) Ur Specific Hart (1.005-1.030) Urine Protein (Negative) Urine Glucose (UA) (Negative) mg/dL Urine Ketones (Negative) Urine Blood (Negative) Urine Nitrite (Negative) Urine Bilirubin (Negative) Urine Urobilinogen (0.2) mg/dL Ur Leukocyte Esterase (Negative) U Hyaline Cast (Auto) (0-2) /LPF Urine Microscopic RBC (0-5) /HPF Urine Microscopic WBC (0-5) /HPF Ur Epithelial Cells (None Seen) /HPF Urine Bacteria (None Seen) /HPF Urine Culture Reflexed (NO) Urine HCG, Qual NEGATIVE (NEGATIVE) 12/16/22 Range/Units 11:29 WBC (4.0-10.5) x10^3/uL RBC (4.1-5.4) x10^6/uL Hgb (12.0-16.0) g/dL Hct (35-47) % MCV (78-100) fL MCH (26-32) pg MCHC (32-36) g/dL RDW (11.5-14.0) % Plt Count (150-450) x10^3/uL MPV (7.5-11.0) fL Gran % (36.0-66.0) % Immature Gran % (Auto) (0.00-0.4) % Nucleat RBC Rel Count (0.00-0.1) % Eos # (Auto) (0-0.5) x10^3/uL Immature Gran # (Auto) (0.00-0.03) x10^3u/L Absolute Lymphs (auto) (1.0-4.6) x10^3/uL Absolute Monos (auto) (0.0-1.3) x10^3/uL Absolute Nucleated RBC (0.00-0.01) x10^3u/L Lymphocytes % (24.0-44.0) % Monocytes % (0.0-12.0) % Eosinophils % (0.00-5.0) % Basophils % (0.0-0.4) % Absolute Granulocytes (1.4-6.9) x10^3/uL Basophils # (0-0.4) x10^3/uL Sodium (137-145) mmol/L Potassium (3.5-5.1) mmol/L Chloride (98-107) mmol/L Carbon Dioxide (22-30) mmol/L Anion Gap (5-15) MEQ/L BUN (7-17) mg/dL Creatinine (0.52-1.04) mg/dL Estimated GFR ML/MIN Glucose (74-106) mg/dL Calcium (8.4-10.2) mg/dL Total Bilirubin (0.2-1.3) mg/dL AST (14-36) U/L ALT (0-35) U/L Alkaline Phosphatase (38-126) U/L Serum Total Protein (6.3-8.2) g/dL Albumin (3.5-5.0) g/dL Amylase (30-110) U/L Lipase (23-300) U/L Beta HCG, Quant mIU/ml Urine Color Yellow (Yellow) Urine Appearance Cloudy A (Clear) Urine pH 6.5 (4.6-8.0) Ur Specific Hart 1.020 (1.005-1.030) Urine Protein Trace A (Negative) Urine Glucose (UA) Negative (Negative) mg/dL Urine Ketones 15 A (Negative) Urine Blood Large A (Negative) Urine Nitrite Negative (Negative) Urine Bilirubin Negative (Negative) Urine Urobilinogen 0.2 (0.2) mg/dL Ur Leukocyte Esterase Large A (Negative) U Hyaline Cast (Auto) NONE SEEN (0-2) /LPF Urine Microscopic RBC 51-100 A (0-5) /HPF Urine Microscopic WBC >100 A (0-5) /HPF Ur Epithelial Cells None Seen (None Seen) /HPF Urine Bacteria None Seen (None Seen) /HPF Urine Culture Reflexed YES (NO) Urine HCG, Qual (NEGATIVE) - Progress Progress: re-examined Air Movement: good Progress Note: 12/16/22 12:27 This patient's medical issue is 1 of moderate complexity. Level complexity in the work-up performed is based on review the patient's past medical history, review the patient's medication list, review of the patient's drug allergy list, history present illness and physical findings on examination. Her work-up includes placement of intravenous line, urinalysis, OB ultrasound less than 14 weeks, CBC, CMP, test, quantitative hCG. 12/16/22 12:31 The OB ultrasound less than 14 weeks was interpreted by the radiologist and I reviewed the impression. The impression states negative for intrauterine or ectopic . Blood Culture(s) Obtained: No Antibiotics given: No Counseled pt/family regarding: lab results, diagnosis, need for follow-up, rad results Medical Desision Making - Diagnostic Testing Diagnostic test were ordered, analyzed, and reviewed by me: Yes Radiological Interpretation: Reviewed by me, Teleradiologist Report - Risk of complications Minimal Risk: Minimal risk of morbidity - Departure Departure Disposition: Home Clinical Impression: UTI (urinary tract infection), Nipple discharge Condition: Stable Critical Care Time: No Referrals: LISA SNOW [Primary Care Provider] - Follow up/PCP as directed Instructions: Urinary Tract Infection, Adult ED Additional Instructions: Drink plenty of fluids. Continue your antibiotics as prescribed. Use Tylenol and ibuprofen for pain control. Keep your appointment on 01/03/2023 for further evaluation and management including a discussion with your provider regarding the nipple discharge.
[2022-12-16 11:19] VITALS: TEMP 97.9
[2022-12-16 11:39] LABS: Appearance Cloudy (Clear); Bacteria None Seen /HPF (None Seen); Bilirubin Negative (Negative); Blood Large (Negative); Epithelial Cells None Seen /HPF (None Seen); Glucose, Urine Negative (Negative); Hyaline Casts NONE SEEN /LPF (0-2); Ketones 15 (Negative); Leukocyte Esterase Large (Negative); Nitrite Negative (Negative); Ph 6.5 (4.6-8.0); Protein,Urine Dip Trace (Negative); RBC 51-100 /HPF (0-5); Urobilinogen 0.2 mg/dL (0.2); WBC >100 /HPF (0-5)
[2022-12-16 11:41] LABS: ADD URINE CULTURE? YES (NO)
[2022-12-16 11:42] LABS: HCG URINE TEST NEGATIVE (NEGATIVE)
--- NOTE | 2022-12-16 12:26 | XRAY ---
Indication: Vaginal bleeding. Two-dimensional transabdominal and transvaginal early OB ultrasound performed. Comparison: None Uterus anteverted measuring 7.9 x 4.0 x 4.9 cm. No focal solid/cystic uterine mass. Endometrial stripe measures 3.8 mm with tiny sliver nonspecific fluid endocervix. No intrauterine gestational sac, pole, or heart tones. Right ovary measures 1.2 x 2.0 x 1.7 cm and left measures 2.4 x 1.2 x 1.7 cm. Normal follicular cysts and perfusion bilaterally. No suspicious adnexal mass or free fluid. Impression: Negative for intrauterine/ectopic .
[2022-12-16] MEDS ORDERED: ROCEPHIN 1 Gm-D5w 50 ml Bag** 1 G/50 ML IVPB IV STA (12:32)
[2022-12-16] MEDS ORDERED: TORAdol 30 mg Injection IM ONE (12:34)
[2022-12-16] MEDS ORDERED: NORCO 5/325 MG PO ONE (12:35)
[2022-12-16] MEDS ORDERED: ROCEPHIN IM ONE (12:35)
[2022-12-16 12:58] LABS: Absolute Neutrophil Ct (ANC) 2.86 x10^3/uL (1.4-6.9); BASOPHIL % 0.5 % (0.0-0.4); Basophil (Absolute #) 0.03 x10^3/uL (0-0.4); Eosinophil % 0.5 % (0.00-5.0); Eosinophil (Absolute #) 0.03 x10^3/uL (0-0.5); Hematocrit 43.5 % (35-47); Hemoglobin 13.5 g/dL (12.0-16.0); IMMATURE GRAN # 0.01 x10^3u/L (0.00-0.03); IMMATURE GRAN % 0.2 % (0.00-0.4); Lymphocyte (Absolute #) 2.45 x10^3/uL (1.0-4.6); Lymphocytes % 41.5 % (24.0-44.0); Mean Cell Volume 97.5 fL (78-100); Mean Corpuscular Hemoglobin 30.3 pg (26-32); Monocyte (Absolute #) 0.53 x10^3/uL (0.0-1.3); Neutrophil % 48.3 % (36.0-66.0); Platelet Count 188 x10^3/uL (150-450); Red Blood Count 4.46 x10^6/uL (4.1-5.4); Red Cell Distribution Width 13.1 % (11.5-14.0); White Blood Count 5.9 x10^3/uL (4.0-10.5)
[2022-12-16] MEDS ORDERED: NORCO 5/325 MG ONE (13:15)
[2022-12-16] MEDS ORDERED: Rocephin 1000 MG INJ ONE (13:15)
[2022-12-16] MEDS ORDERED: XYLOCAINE 1% HCL 20 ML MDV ONE (13:15)
[2022-12-16] MEDS ORDERED: TORAdol 30 mg Injection ONE (13:15)
[2022-12-16] MEDS ORDERED: Rocephin 1000 MG INJ IM ONE (13:18)
[2022-12-16 13:30] LABS: ALBUMIN 4.1 g/dL (3.5-5.0); ALKALINE PHOSPHATASE 84 U/L (38-126); AMYLASE 40 U/L (30-110); ANION GAP 15.4 MEQ/L (5-15); BLOOD UREA NITROGEN 10 mg/dL (7-17); CHLORIDE 106 mmol/L (98-107); Calcium 9.3 mg/dL (8.4-10.2); Carbon Dioxide 20 mmol/L (22-30); Creatinine 1 0.76 mg/dL (0.52-1.04); EST GLOMERULAR FILTRATION RATE 112.9 ML/MIN; Glucose 82 mg/dL (74-106); HCG, Quantitative (Inhouse) < 2.39 mIU/ml; LIPASE 60 U/L (23-300); Potassium 4.2 mmol/L (3.5-5.1); SGOT/AST 20 U/L (14-36); SGPT/ALT 25 U/L (0-35); SODIUM 138 mmol/L (137-145); Total Protein 6.7 g/dL (6.3-8.2)
[2022-12-16 13:50] VITALS: BP 124/84; PULSE 96; RESP 16; O2SAT 95
== END 2022-12-16 13:59 | disposition home or self-care (01) ==
LOC: ED 10:30
DX: N39.0 Urinary tract infection, site not specified (principal); N64.52 Nipple discharge; R31.9 Hematuria, unspecified; M54.50 Low back pain, unspecified
CPT/HCPCS: 36415; 76801; 80053; 81001; 81025; 82150; 83690; 84702; 85025; 87086; 96372; 99284; J0696; J1885; A9270-GY

== ENCOUNTER 2023-06-23 17:34 | Emergency (ER) | payer BC, OTHER ==
[2023-06-23 17:58] VITALS: TEMP 97.8
--- NOTE | 2023-06-23 18:35 | ERPHSYRPT ---
- History of Present Illness Time Seen by Provider: 06/23/23 17:54 Historian: patient Exam Limitations: no limitations Patient Subjective Stated Complaint: PT states "I have been to a few GI dr and have gotten a few different diagnoses. I was told I have crohn's, gastroporesis and IBS. For the past week I have gotten more and more bloated and I am bleeding from my butt." Triage Nursing Assessment: Pt presented alert and oriented X 3, skin pwd. Pt ambulates with an upright steady gait, able to speak in clear full sentences. pt abdomen distended, soft tender periumbilicus Physician History: 22 years old female with history of Crohn's disease presented in the ER with complains of abdominal distention/bloating off and on for the last 3 weeks with increasing diarrhea for the last couple of days. Patient reports having loose stool 5-6 every day with generalized abdominal pain moderate intensity dull aching without any significant aggravating or relieving factors. Patient has been evaluated at [facility] and [facility] with negative workup. She does not have any imaging of abdomen done. Also reports having history of hemorrhoids and lately noticed some bright red blood. No history of acid reflux or acid peptic disease/epigastric pain. No history of dark stool. No fever or chills reported. No known sick contact. Also reports having some nausea and occasional vomiting associated with it. Allergies/Adverse Reactions: ciprofloxacin [From Cipro] Allergy (Severe, Verified 12/16/22 11:20) diff breathing sulfamethoxazole [From Bactrim] Allergy (Severe, Verified 12/16/22 11:20) diff breathing trimethoprim [From Bactrim] Allergy (Severe, Verified 12/16/22 11:20) diff breathing latex Allergy (Verified 12/16/22 11:20) Wheezing and hives peanut Allergy (Verified 12/16/22 11:20) wheat Adverse Reaction (Verified 12/16/22 11:20) sick Home Medications: Amoxicillin 500 mg PO DAILY 06/23/23 [History] Ondansetron [Ondansetron Odt ] 4 mg SL DAILY PRN 06/23/23 [History] PANTOPRAZOLE 40 mg Tablet [Protonix 40MG Tablet] 40 mg PO DAILY 06/23/23 [History] Prednisone 20 mg [Deltasone 20 mg] 20 mg PO DAILY 06/23/23 [History] Hx Tetanus, Diphtheria Vaccination/Date Given: Yes Hx Influenza Vaccination/Date Given: No Hx Pneumococcal Vaccination/Date Given: No Immunizations Up to Date: No Travel Risk - International Travel Have you traveled outside of the country in past 3 weeks: No - Emerging Infectious Disease Are you exhibiting symptoms associated with any current EIDs: No - Review of Systems Constitutional: No Symptoms Eyes: No Symptoms Ears, Nose, & Throat: No Symptoms Respiratory: No Symptoms Cardiac: No Symptoms Abdominal/Gastrointestinal: Abdominal Pain, Nausea, Vomiting, Diarrhea Genitourinary Symptoms: No Symptoms Musculoskeletal: No Symptoms Skin: No Symptoms Neurological: No Symptoms Psychological: No Symptoms Immunological/Allergic: Other - Past Medical History Pertinent Past Medical History: Yes Neurological History: No Pertinent History ENT History: No Pertinent History Cardiac History: No Pertinent History Respiratory History: Asthma Endocrine Medical History: No Pertinent History Musculoskeletal History: No Pertinent History GI Medical History: Crohns Disease, Irritable Bowel, Other History: No Pertinent History Psycho-Social History: No Pertinent History Female Reproductive Disorders: No Pertinent History Other Medical History: abd pain n/v diarrhea constipations since Feb 2019. gastroporesis - Past Surgical History Past Surgical History: No Neuro Surgical History: No Pertinent History Cardiac: No Pertinent History Respiratory: No Pertinent History Gastrointestinal: No Pertinent History Genitourinary: No Pertinent History Musculoskeletal: No Pertinent History Female Surgical History: No Pertinent History Other Surgical History: pt states pt has never had surgery - Female History Hx Last Menstrual Period: 03/24/2023 Hx Now: (unknown) - Social History Smoking Status: Never smoker Exposure to second hand smoke: No Drug Use: none Patient Lives Alone: Yes - Nursing Vital Signs Nursing Vital Signs: Initial Vital Signs Temperature 97.8 F 06/23/23 17:51 Pulse Rate 99 H 06/23/23 17:51 Respiratory Rate 20 06/23/23 17:51 Blood Pressure 125/84 06/23/23 17:51 O2 Sat by Pulse Oximetry 100 06/23/23 17:51 Pain Scale Pain Intensity 8 - Physical Exam General Appearance: no apparent distress, alert Eye Exam: PERRL/EOMI Ears, Nose, Throat Exam: normal ENT inspection Neck Exam: normal inspection, non-tender, supple, full range of motion Respiratory Exam: normal breath sounds, lungs clear Cardiovascular Exam: regular rate/rhythm, normal heart sounds Gastrointestinal/Abdomen Exam: soft, normal bowel sounds, tenderness (Mild generalized tender), distention, No guarding Back Exam: normal inspection, normal range of motion Extremity Exam: normal inspection, normal range of motion, pelvis stable Neurologic Exam: alert, oriented x 3, cooperative, special needs librarian II-XII nml as tested Skin Exam: normal color SpO2 Interpretation: normal SpO2: 100 O2 Delivery: Room Air Ordered Tests: Active Orders 24 hr Category Date Time Status IV Insertion STAT Care 06/23/23 18:27 Active NPO (ED) STAT Care 06/23/23 18:27 Active ABDOMEN AND PELVIS W/0 CONTRAS [CT] Stat Exams 06/23/23 19:27 Taken CBC W DIFF Stat Lab 06/23/23 18:45 Completed CMP Stat Lab 06/23/23 18:43 Completed CULTURE,URINE Stat Lab 06/23/23 18:05 Received HCG QUALITATIVE, URINE Stat Lab 06/23/23 18:05 Completed LIPASE Stat Lab 06/23/23 18:43 Completed UA W/RFX UR CULTURE Stat Lab 06/23/23 18:05 Completed Medication Summary Discontinued Medications Generic Name Dose Route Start Last Admin Trade Name Freq PRN Reason Stop Dose Admin Cephalexin HCl 500 mg 06/23/23 20:28 06/23/23 20:31 Cephalexin Mh500 Mg Capsule PO 06/23/23 20:29 Not Given STAT ONE Sodium Chloride 1,000 mls @ 999 mls/hr 06/23/23 18:27 06/23/23 19:50 Sodium Chloride 0.9% 1000 Ml IV 06/23/23 19:27 Infused .Q1H1M STA Infusion Sodium Chloride Confirm 06/23/23 18:43 Sodium Chloride 0.9% 1000 Ml Administered 06/23/23 18:44 Dose 1,000 mls @ ud .ROUTE .STK-MED ONE Ketorolac Tromethamine 30 mg 06/23/23 20:25 06/23/23 20:27 Ketorolac Tromethamine 30 Mg/Ml Inj IV 06/23/23 20:26 30 mg STAT ONE Administration Ketorolac Tromethamine Confirm 06/23/23 20:26 Ketorolac Tromethamine 30 Mg/Ml Inj Administered 06/23/23 20:27 Dose 30 mg .ROUTE .STK-MED ONE Lab/Rad Data: Laboratory Result Diagrams 06/23/23 18:45 06/23/23 18:43 Laboratory Results 06/23/23 06/23/23 06/23/23 Range/Units 18:45 18:43 18:05 WBC 11.6 H (4.0-10.5) x10^3/uL RBC 4.37 (4.1-5.4) x10^6/uL Hgb 13.1 (12.0-16.0) g/dL Hct 39.3 (35-47) % MCV 89.9 (78-100) fL MCH 30.0 (26-32) pg MCHC 33.3 (32-36) g/dL RDW 13.1 (11.5-14.0) % Plt Count 317 (150-450) x10^3/uL MPV 9.0 (7.5-11.0) fL Gran % 73.9 H (36.0-66.0) % Immature Gran % (Auto) 0.3 (0.00-0.4) % Nucleat RBC Rel Count 0.0 (0.00-0.1) % Eos # (Auto) 0.01 (0-0.5) x10^3/uL Immature Gran # (Auto) 0.03 (0.00-0.03) x10^3u/L Absolute Lymphs (auto) 2.14 (1.0-4.6) x10^3/uL Absolute Monos (auto) 0.80 (0.0-1.3) x10^3/uL Absolute Nucleated RBC 0.00 (0.00-0.01) x10^3u/L Lymphocytes % 18.5 L (24.0-44.0) % Monocytes % 6.9 (0.0-12.0) % Eosinophils % 0.1 (0.00-5.0) % Basophils % 0.3 (0.0-0.4) % Absolute Granulocytes 8.58 H (1.4-6.9) x10^3/uL Basophils # 0.03 (0-0.4) x10^3/uL Sodium 139 (135-145) mmol/L Potassium 4.0 (3.5-5.1) mmol/L Chloride 109 H (98-107) mmol/L Carbon Dioxide 22 (22-30) mmol/L Anion Gap 12.6 (5-15) MEQ/L BUN 15 (7-17) mg/dL Creatinine 0.75 (0.52-1.04) mg/dL Estimated GFR 114.7 ML/MIN Glucose 108 H (74-106) mg/dL Calcium 9.6 (8.4-10.2) mg/dL Total Bilirubin 0.20 (0.2-1.3) mg/dL AST 17 (14-36) U/L ALT 14 (0-35) U/L Alkaline Phosphatase 76 (38-126) U/L Serum Total Protein 7.1 (6.3-8.2) g/dL Albumin 4.0 (3.5-5.0) g/dL Lipase 64 (23-300) U/L Urine Color (Yellow) Urine Appearance (Clear) Urine pH (4.6-8.0) Ur Specific [place] (1.005-1.030) Urine Protein (Negative) Urine Glucose (UA) (Negative) mg/dL Urine Ketones (Negative) Urine Blood (Negative) Urine Nitrite (Negative) Urine Bilirubin (Negative) Urine Urobilinogen (0.2) mg/dL Ur Leukocyte Esterase (Negative) U Hyaline Cast (Auto) (0-2) /LPF Urine Microscopic RBC (0-5) /HPF Urine Microscopic WBC (0-5) /HPF Ur Epithelial Cells (None Seen) /HPF Urine Bacteria (None Seen) /HPF Urine Culture Reflexed (NO) Urine HCG, Qual NEGATIVE (NEGATIVE) 06/23/23 Range/Units 18:05 WBC (4.0-10.5) x10^3/uL RBC (4.1-5.4) x10^6/uL Hgb (12.0-16.0) g/dL Hct (35-47) % MCV (78-100) fL MCH (26-32) pg MCHC (32-36) g/dL RDW (11.5-14.0) % Plt Count (150-450) x10^3/uL MPV (7.5-11.0) fL Gran % (36.0-66.0) % Immature Gran % (Auto) (0.00-0.4) % Nucleat RBC Rel Count (0.00-0.1) % Eos # (Auto) (0-0.5) x10^3/uL Immature Gran # (Auto) (0.00-0.03) x10^3u/L Absolute Lymphs (auto) (1.0-4.6) x10^3/uL Absolute Monos (auto) (0.0-1.3) x10^3/uL Absolute Nucleated RBC (0.00-0.01) x10^3u/L Lymphocytes % (24.0-44.0) % Monocytes % (0.0-12.0) % Eosinophils % (0.00-5.0) % Basophils % (0.0-0.4) % Absolute Granulocytes (1.4-6.9) x10^3/uL Basophils # (0-0.4) x10^3/uL Sodium (135-145) mmol/L Potassium (3.5-5.1) mmol/L Chloride (98-107) mmol/L Carbon Dioxide (22-30) mmol/L Anion Gap (5-15) MEQ/L BUN (7-17) mg/dL Creatinine (0.52-1.04) mg/dL Estimated GFR ML/MIN Glucose (74-106) mg/dL Calcium (8.4-10.2) mg/dL Total Bilirubin (0.2-1.3) mg/dL AST (14-36) U/L ALT (0-35) U/L Alkaline Phosphatase (38-126) U/L Serum Total Protein (6.3-8.2) g/dL Albumin (3.5-5.0) g/dL Lipase (23-300) U/L Urine Color Yellow (Yellow) Urine Appearance Clear (Clear) Urine pH 5.5 (4.6-8.0) Ur Specific [place] >=1.030 A (1.005-1.030) Urine Protein Negative (Negative) Urine Glucose (UA) Negative (Negative) mg/dL Urine Ketones Negative (Negative) Urine Blood Negative (Negative) Urine Nitrite Negative (Negative) Urine Bilirubin Negative (Negative) Urine Urobilinogen 1.0 A (0.2) mg/dL Ur Leukocyte Esterase Small A (Negative) U Hyaline Cast (Auto) NONE SEEN (0-2) /LPF Urine Microscopic RBC 0-2 (0-5) /HPF Urine Microscopic WBC 11-20 A (0-5) /HPF Ur Epithelial Cells Few (None Seen) /HPF Urine Bacteria None Seen (None Seen) /HPF Urine Culture Reflexed YES (NO) Urine HCG, Qual (NEGATIVE) - Progress Progress: improved Progress Note: 06/23/23 20:58 22 years old is evaluated for abdominal bloating/distention with generalized pain and some element of diarrhea. She has history of hemorrhoids and has been noticing increased bleeding lately. Patient is given fluids and symptomatic treatment, on reevaluation she is feeling better. Patient workup showed normal white count, fairly unremarkable chemistries. Has some element of UTI and patient is on amoxicillin. I would not change her antibiotics. I have obtained CT abdomen pelvis which initially was ordered with contrast but patient does not want contrast because of questionable history of allergies and without contrast is negative for acute inflammatory process and abdominal pelvic area. No does have diffuse fecal loading per preliminary report, official report is pending. No obstruction reported. Patient though is complaining of loose stool, I believe patient has some element of obstipation. She is advised to take MiraLAX and stool softener daily. Patient refused to have a rectal exam and would follow-up outpatient with her primary care/GI. Her symptoms does not seem to be upper GI bleed and more of a hemorrhoidal bleed. Recommended [id number] hemorrhoidal gel and outpatient follow-up. At this point I do not think patient needs any further workup and can be discharge with outpatient follow-up. She is advised to continue with her home medication including hyos cyamine. Discussed signs symptoms of worsening needing return to ER which she seems understanding. Stable for discharge. 06/23/23 20:59 Counseled pt/family regarding: lab results, diagnosis, need for follow-up, rad results Medical Desision Making - Diagnostic Testing Diagnostic test were ordered, analyzed, and reviewed by me: Yes Radiological Interpretation: Reviewed by me, Teleradiologist Report - Risk of complications The pt has a mod risk of morbidity or mortality based on: Need for prescription drug management - Departure Departure Disposition: Home Clinical Impression: Generalized abdominal pain, Constipation Condition: Stable Critical Care Time: No Referrals: LISA MORRISON [Primary Care Provider] - Follow up with PCP 1 day Instructions: Severe Abdominal Pain, Adult (DC) Additional Instructions: Take daily stool softener and MiraLAX. Tylenol/ibuprofen as needed. Follow-up with primary care and general surgery for reevaluation of hemorrhoids. Return to ER for intractable abdominal pain/nausea vomiting/diarrhea or if develop fever chills etc. Prescriptions: Polyethylene Glycol 3350 17 gm [Miralax Powder 17GM PACKET] 17 gm PO DAILY #30 packet
[2023-06-23] MEDS ORDERED: Sodium Chloride 0.9% 1000 ML 1,000 ML ONE (18:43)
[2023-06-23] MEDS: Sodium Chloride 0.9% 1000 ML 1,000 ML IV STA (18:45)
[2023-06-23 18:52] LABS: Absolute Neutrophil Ct (ANC) 8.58 x10^3/uL (1.4-6.9); BASOPHIL % 0.3 % (0.0-0.4); Basophil (Absolute #) 0.03 x10^3/uL (0-0.4); Eosinophil % 0.1 % (0.00-5.0); Eosinophil (Absolute #) 0.01 x10^3/uL (0-0.5); Hematocrit 39.3 % (35-47); Hemoglobin 13.1 g/dL (12.0-16.0); IMMATURE GRAN # 0.03 x10^3u/L (0.00-0.03); IMMATURE GRAN % 0.3 % (0.00-0.4); Lymphocyte (Absolute #) 2.14 x10^3/uL (1.0-4.6); Lymphocytes % 18.5 % (24.0-44.0); Mean Cell Volume 89.9 fL (78-100); Mean Corpuscular Hgb Concent. 33.3 g/dL (32-36); Monocytes % 6.9 % (0.0-12.0); Neutrophil % 73.9 % (36.0-66.0); Platelet Count 317 x10^3/uL (150-450); Red Blood Count 4.37 x10^6/uL (4.1-5.4); Red Cell Distribution Width 13.1 % (11.5-14.0); White Blood Count 11.6 x10^3/uL (4.0-10.5)
[2023-06-23 18:54] LABS: HCG URINE TEST NEGATIVE (NEGATIVE)
[2023-06-23 18:59] LABS: ADD URINE CULTURE? YES (NO); Appearance Clear (Clear); Bacteria None Seen /HPF (None Seen); Bilirubin Negative (Negative); Blood Negative (Negative); Epithelial Cells Few /HPF (None Seen); Glucose, Urine Negative (Negative); Hyaline Casts NONE SEEN /LPF (0-2); Ketones Negative (Negative); Leukocyte Esterase Small (Negative); Nitrite Negative (Negative); Ph 5.5 (4.6-8.0); Protein,Urine Dip Negative (Negative); RBC 0-2 /HPF (0-5); Specific Gravity >=1.030 (1.005-1.030)
[2023-06-23 19:06] LABS: ANION GAP 12.6 MEQ/L (5-15); BILIRUBIN,TOTAL 0.2 mg/dL (0.2-1.3); Calcium 9.6 mg/dL (8.4-10.2); Creatinine 1 0.75 mg/dL (0.52-1.04); EST GLOMERULAR FILTRATION RATE 114.7 ML/MIN; Total Protein 7.1 g/dL (6.3-8.2)
[2023-06-23] MEDS ORDERED: TORAdol 30 mg Injection ONE (20:26)
[2023-06-23] MEDS: TORAdol 30 mg Injection IV ONE (20:27)
[2023-06-23] MEDS: KEFLEX 500 MG PO ONE (20:31)
[2023-06-23 20:33] VITALS: BP 122/88; PULSE 60; RESP 22
[2023-06-23 20:41] VITALS: O2SAT 100
--- NOTE | 2023-06-24 09:22 | XRAY ---
Indication: Abdomen distention. Diarrhea. Multiple contiguous axial images obtained through the abdomen and pelvis without contrast. Comparison: None Lung bases clear. Heart not enlarged. Noncontrasted stomach and bowel loops appear nonobstructed with normal appearing appendix. Mild diffuse scattered colonic fecal debris. No free fluid/air. Remaining liver, gallbladder, pancreas, spleen, adrenal glands, kidneys, ureters, bladder, uterus, and aorta are unremarkable for noncontrast exam. Osseous structures intact. No ventral or inguinal hernias. Impression: Mild diffuse fecal stasis. Remaining CT abdomen/pelvis without contrast exam is negative.
== END 2023-06-23 20:59 | disposition home or self-care (01) ==
LOC: ED 17:34
DX: R10.84 Generalized abdominal pain (principal); K59.00 Constipation, unspecified; R19.7 Diarrhea, unspecified; R11.2 Nausea with vomiting, unspecified; Z79.52 Long term (current) use of systemic steroids; Z79.899 Other long term (current) drug therapy
CPT/HCPCS: 36000; 36415; 74176; 80053; 81001; 81025; 83690; 85025; 87086; 96360; 96374; 99284; J1885

== ENCOUNTER 2024-11-05 11:42 | Emergency (ER) | payer BC ==
[2024-11-05 12:10] VITALS: TEMP 97.4; O2SAT 97
[2024-11-05 13:10] VITALS: BP 110/74; PULSE 73; RESP 16
--- NOTE | 2024-11-05 13:22 | XRAY ---
Indication: Crampy abdominal pain. Evaluate heart rate, cervical length, RUBI, and placenta. Limited transabdominal early OB ultrasound performed. Comparison: None Single intrauterine currently in breech presentation. heart rate 134 bpm. Posterior placenta without abruption/previa. RUBI is 9.1 cm. Cervical length is 3.7 cm.
[2024-11-05 13:23] LABS: Glucose, Urine Negative (Negative); Protein,Urine Dip Negative (Negative); RBC 0-2 /HPF (0-5); WBC 0-2 /HPF (0-5)
--- NOTE | 2024-11-05 13:47 | ERPHSYRPT ---
- History of Present Illness Time Seen by Provider: 11/05/24 12:10 Source: patient Exam Limitations: no limitations Patient Subjective Stated Complaint: PT ALERT, WALKED IN, RESP EASY. SKIN W.D.P. MOVES ALL EXT WELL, ABD ROUNDED, NO DISTRESS, Triage Nursing Assessment: PT SENT OVER BY DR PENA OFFICE FOR LOWER ABD CRAMPING, SHE IS 19 WEEKS . DENIES VAGINAL BLEEDING AT THIS TIME, WAS RECENTLY TREATED FOR C DIFF AND IS STILL ON ANTIBOIICS, SHE DENIES VOMITING OR LOOSE STOOLS, NO FEVER Physician History: This is a 24-year-old white female patient who is approximately 19 weeks who was sent over to the emergency department by the patient's director banking. Specifically, the director banking, Dr. Hines, wanted us to run a urinalysis, obtain heart tones and find out the cervical length on ultrasound. The patient has been diagnosed with C. difficile toxin and is currently on metronidazole. She has no further diarrhea. She does have bilateral suprapubic cramping that is mild. She has had no nausea or vomiting symptoms. She denies chest pain and she denies shortness of breath. Timing/Duration: today Activites at Onset: none Quality: cramping Onset Location: suprapubic Pain Radiation: none Severity of Pain-Max: mild Severity of Pain-Current: mild Sexual intercourse history: non-contributory Modifying Factors: Improves With: nothing Associated Symptoms: abdominal pain (Suprapubic, bilateral, mild cramping), No nausea, No vomiting, No dysuria, No polyuria, No urinary frequency, No vaginal discharge, No vaginal fluid leakage Allergies/Adverse Reactions: ciprofloxacin [From Cipro] Allergy (Severe, Verified 11/05/24 12:08) diff breathing sulfamethoxazole [From Bactrim] Allergy (Severe, Verified 11/05/24 12:08) diff breathing trimethoprim [From Bactrim] Allergy (Severe, Verified 11/05/24 12:08) diff breathing cephalexin [From Keflex] Allergy (Verified 11/05/24 12:08) latex Allergy (Verified 11/05/24 12:08) Wheezing and hives peanut Allergy (Verified 11/05/24 12:08) wheat Adverse Reaction (Verified 11/05/24 12:08) sick Home Medications: PANTOPRAZOLE 40 mg Tablet [Protonix 40MG Tablet] 40 mg PO DAILY 06/23/23 [History] Albuterol Sulfate [Albuterol Sulfate Hfa] 8.5 gm IH Q6HPRN PRN 11/21/23 [History] Loratadine 10 mg [Claritin 10 mg] 10 mg PO DAILY 11/21/23 [History] Promethazine HCl 25 mg PO Q12H PRN PRN 11/21/23 [History] Buspirone HCl 5 mg [Buspar 5 mg] 5 mg PO BID 11/05/24 [History] Pnv No.95/Ferrous Fum/Folic AC [ Caplet] 1 each PO DAILY 11/05/24 [History] Hx Tetanus, Diphtheria Vaccination/Date Given: Yes Hx Influenza Vaccination/Date Given: No Hx Pneumococcal Vaccination/Date Given: No Travel Risk - International Travel Have you traveled outside of the country in past 3 weeks: No - Emerging Infectious Disease Are you exhibiting symptoms associated with any current EIDs: No - Review of Systems Constitutional: No Symptoms Eyes: No Symptoms Ears, Nose, & Throat: No Symptoms Respiratory: No Symptoms Cardiac: No Symptoms Abdominal/Gastrointestinal: Abdominal Pain (Bilateral suprapubic discomfort) Genitourinary Symptoms: No Symptoms, No Vaginal Bleeding, No Vaginal Discharge Musculoskeletal: No Symptoms Skin: No Symptoms Neurological: No Symptoms Psychological: No Symptoms Endocrine: No Symptoms Hematologic/Lymphatic: No Symptoms Immunological/Allergic: No Symptoms All Other Systems: Reviewed and Negative - Past Medical History Pertinent Past Medical History: Yes Neurological History: No Pertinent History ENT History: No Pertinent History Cardiac History: No Pertinent History Respiratory History: Asthma Endocrine Medical History: No Pertinent History Musculoskeletal History: No Pertinent History GI Medical History: Crohns Disease, Irritable Bowel, Other History: No Pertinent History Psycho-Social History: No Pertinent History Female Reproductive Disorders: No Pertinent History Other Medical History: abd pain n/v diarrhea constipations since Feb 2019. gastroporesis. C= DIFF -10/2024 - Past Surgical History Past Surgical History: No Neuro Surgical History: No Pertinent History Cardiac: No Pertinent History Respiratory: No Pertinent History Gastrointestinal: No Pertinent History Genitourinary: No Pertinent History Musculoskeletal: No Pertinent History Female Surgical History: No Pertinent History Other Surgical History: pt states pt has never had surgery - Female History Hx Last Menstrual Period: JUNE 18 Hx Now: Yes Gestational Age: 18 - Social History Smoking Status: Never smoker Exposure to second hand smoke: No Drug Use: none - Social Determinants of Health Will the patient participate in the screening: Yes Do you worry about a steady place to live?: No Do you have any problems with any of the following?: No known problems In the past 12 months,have you had to go without utilities?: No Transportation Issues: No Has anyone in your support network made you feel unsafe?: No Have you or anyone in your house had to go w/o enough food: No - Nursing Vital Signs Nursing Vital Signs: Initial Vital Signs Pulse Rate 78 11/05/24 12:06 Respiratory Rate 16 11/05/24 12:06 Blood Pressure 122/67 11/05/24 12:06 O2 Sat by Pulse Oximetry 96 11/05/24 12:06 Pain Scale Pain Intensity 6 - Physical Exam General Appearance: no apparent distress, alert, anxiety Eye Exam: PERRL/EOMI Ears, Nose, Throat Exam: normal ENT inspection, moist mucous membranes Neck Exam: normal inspection, non-tender, supple Respiratory Exam: normal breath sounds, lungs clear, airway intact, No chest tenderness, No respiratory distress Cardiovascular Exam: regular rate/rhythm, normal heart sounds, normal peripheral pulses Gastrointestinal/Abdomen Exam: soft, normal bowel sounds, tenderness (Very mild suprapubic tenderness to palpation), No guarding, No rebound Pelvic Exam: not done Rectal Exam: not done Back Exam: normal inspection, normal range of motion, No CVA tenderness, No vertebral tenderness Extremity Exam: normal inspection, normal range of motion, pelvis stable Neurologic Exam: alert, oriented x 3, cooperative Skin Exam: normal color, warm, dry Lymphatic Exam: No adenopathy SpO2 Interpretation: normal SpO2: 97 O2 Delivery: Room Air - Course Nursing assessment & vital signs reviewed: Yes Ordered Tests: Active Orders 24 hr Category Date Time Status Heart Tones Q15M Care 11/05/24 12:30 Active OB LIMITED [US] Stat Exams 11/05/24 12:31 Completed UA W/RFX UR CULTURE Stat Lab 11/05/24 13:10 Completed Lab/Rad Data: Laboratory Results 11/05/24 Range/Units 13:10 Urine Color Yellow (Yellow) Urine Appearance Clear (Clear) Urine pH 6.5 (4.6-8.0) Ur Specific [place] 1.010 (1.005-1.030) Urine Protein Negative (Negative) Urine Glucose (UA) Negative (Negative) mg/dL Urine Ketones Negative (Negative) Urine Blood Negative (Negative) Urine Nitrite Negative (Negative) Urine Bilirubin Negative (Negative) Urine Urobilinogen 0.2 (0.2) mg/dL Ur Leukocyte Esterase Trace A (Negative) U Hyaline Cast (Auto) NONE SEEN (0-2) /LPF Urine Microscopic RBC 0-2 (0-5) /HPF Urine Microscopic WBC 0-2 (0-5) /HPF Ur Epithelial Cells None Seen (None Seen) /HPF Urine Bacteria None Seen (None Seen) /HPF Urine Culture Reflexed NO (NO) - Progress Progress: improved, re-examined Air Movement: good Progress Note: 11/05/24 13:45 My medical decision making and the assignment of moderate complexity to this patient's medical issue today is based on review of the patient's past medical history, reviewed the patient's medication list, reviewed the patient drug allergy list, history present illness and physical findings on examination. The workup in this patient is based on the patient's director banking request which includes urinalysis, heart tones and a limited OB ultrasound to include heart tones and cervical length. Differential diagnosis includes but is not limited to abdominal cramping, urinary tract infection, uterine ligament pain 11/05/24 13:47 I interpreted the patient's laboratory data results. Based on laboratory data results, there are no acute, emergent medical issues. The final limited OB ultrasound report was interpreted by the radiologist and I reviewed the impression. The impression states heart tones 134 bpm. The fetus is currently breech position. AF is 9.1 cm. The posterior placenta is without abruption or previa. The cervical length is 3.7 cm[address] I spoke with Dr. Hines, the patient's director banking. The lab results and radiographic study results were discussed with him. He told me to tell the patient that that everything looks good. She is to follow-up in his office. 11/05/24 13:49 Blood Culture(s) Obtained: No Antibiotics given: No Counseled pt/family regarding: lab results, diagnosis, need for follow-up, rad results Medical Desision Making - Diagnostic Testing Diagnostic test were ordered, analyzed, and reviewed by me: Yes Radiological Interpretation: Reviewed by me, Teleradiologist Report - Risk of complications Low Risk: Low risk of morbidity from additional dx testing or treatment - Departure Departure Disposition: Home Clinical Impression: with suprapubic cramping, antepartum Condition: Stable Critical Care Time: No Referrals: LISA MORRISON [Primary Care Provider, [facility]] - Follow up/PCP as directed Additional Instructions: Drink plenty of fluids. Take your medications as prescribed. Follow-up with your director banking by phone today, 11/05/2024, to make arranges for follow-up appointment to be seen in the next 3 to 5 days.
== END 2024-11-05 14:08 | disposition home or self-care (01) ==
LOC: ED 11:42
DX: O26.892 Other specified pregnancy related conditions, second trimester (principal); R10.2 Pelvic and perineal pain; Z3A.19 19 weeks gestation of pregnancy; Z79.899 Other long term (current) drug therapy